=== PATIENT | male | born 1980 | race American Indian/Alaskan Native ===

== ENCOUNTER 2018-03-07 13:30 | Emergency (ER) | payer OTHER | END 2018-03-07 20:30 | disposition left against medical advice (07) | LOC: ED 13:30 ==

== ENCOUNTER 2018-03-08 11:42 | Emergency (ER) | payer OTHER ==
--- NOTE | 2018-03-08 12:57 | Emergency Department Report ---
Chief Complaint: Laceration/Recheck/Suture Stated Complaint: STITCHES REMOVAL Time Seen by Provider: 03/08/18 12:15 - HPI History of Present Illness: This is a 38-year-old male presents to have his sutures reevaluated patient was seen here 6 days ago he had sutures placed on his left and a left ear. Patient states that he never received a prescription for antibiotics and is noticed that his suture site on his hand is becoming red and swelling with some pus around it . Patient states he received a tetanus booster while he was there but did not receive a prescription for antibiotics. He states he has been cleaning wound with peroxide and salt water daily. And applying topical Neosporin - ROS Review of Systems: Denies all other systems - Exam Vital Signs: Vital Signs 03/08/18 11:52 Temperature 98.1 F Pulse Rate 68 Respiratory 16 Rate Blood Pressure 120/76 O2 Sat by Pulse 99 Oximetry Physical Exam: GEN: Patient is alert and oriented 3, he is in no respiratory acute distress. Sitting comfortably in ED bed. EXTREMITY: 5-6 stitches noted on the left posterior hand. Sutures side has some swelling and erythema around it., Nontender to palpation. Small pus filled pustules around the suture site. 3 stitches to the left ear. Looks well healing. MSE screening note: Focused history and physical exam performed. Due to findings the following was ordered: ED Medical Decision Making - Medical Decision Making 38-year-old male presents for suture reevaluation Upon my evaluation I discussed the patient states she is ready to come out. I discussed the patient we'll give him some antibiotics to prevent further infection. I discussed heat therapy 3 times a day to help with inflammation. I discussed the patient need to return in 5 days for suture removal after wound is probably healed. Vital signs are normal patient is no acute distress. ED Disposition for MSE Clinical Impression: Hand laceration, Ear lobe laceration Disposition: - TO HOME OR SELFCARE Is pt being admited?: No Does the pt Need Aspirin: No Condition: Stable Instructions: Suture Care (ED) Additional Instructions: Make sure to follow up with the primary care physician as discussed. Take all your medications as you've been prescribed. If you have any worsening symptoms or develop new symptoms please return to ED immediately. Prescriptions: Clindamycin [Clindamycin CAP] 300 mg PO Q8H #21 cap Ibuprofen [Motrin 600 MG tab] 600 mg PO Q8H PRN #30 tablet PRN Reason: Pain Referrals: PRIMARY CARE, [Primary Care Provider] - 3-5 Days [facility] [Outside] - 3-5 Days Forms: Work/School Release Form(ED) Time of Disposition: 12:59
== END 2018-03-08 13:12 | disposition home or self-care (01) ==
LOC: ED 11:42
CPT/HCPCS: 99282

== ENCOUNTER 2018-04-03 16:57 | Emergency (ER) | payer OTHER ==
[2018-04-03 18:07] LABS: Hematocrit 48.1 % (35.5-45.6); Lymphocytes % (Auto) 37.9 % (13.4-35.0); Mean Corpuscular HGB Conc 33 % (32-34); Mean Corpuscular Volume 97 fl (84-94); Monocytes % (Auto) 15.3 % (0.0-7.3); Platelet Count 239 K/mm3 (140-440); Red Blood Count 4.95 M/mm3 (3.65-5.03)
[2018-04-03 18:08] LABS: Basophils # (Auto) 0.1 K/mm3 (0.0-0.1); Basophils % (Auto) 1.8 % (0.0-1.8); Eosinophils # (Auto) 0.1 K/mm3 (0.0-0.4); Eosinophils % (Auto) 3.8 % (0.0-4.3); Lymphocytes # (Auto) 1.4 K/mm3 (1.2-5.4); Monocytes # (Auto) 0.6 K/mm3 (0.0-0.8)
[2018-04-03 18:14] LABS: Alanine Aminotransferase 13 units/L (7-56); Albumin 4.3 g/dL (3.9-5); BUN/Creatinine Ratio 13; Blood Urea Nitrogen 16 mg/dL (9-20); Calcium 9.6 mg/dL (8.4-10.2); Hemolysis Index 26
[2018-04-03] MEDS ORDERED: ZOFRAN IV STA (19:54)
[2018-04-03] MEDS ORDERED: TORADOL IV STA (19:54)
[2018-04-03] MEDS ORDERED: NACL 0.9% 1000 ML 1,000 ML IV ONE (19:54)
--- NOTE | 2018-04-03 20:01 | Emergency Department Report ---
ED Abdominal Pain HPI - General Chief Complaint: Abdominal Pain Stated Complaint: STOMACH PAIN/VOMIT Time Seen by Provider: 04/03/18 19:15 Source: patient Mode of arrival: Ambulatory Limitations: No Limitations - History of Present Illness Initial Comments: 38-year-old -[place] male with no significant past medical history reports emerge department complaining of a 2 day history of non-progressing upper abdominal pain associated with vomiting 7 and also constipation. Pain is changing in character and intensity throughout the course of the day with no known palliative or provocative factors. Reports no fevers, chills, sweats. Reports no no diarrhea, no hemoptysis, hematemesis, or hematochezia. Reports no trauma. There is no foreign travel or fever. Reports no new food was for special diets. Systems urine has been sent been a little bit dark but he still is able to urinate daily. MD Complaint: abdominal pain Location: epigastric Radiation: RUQ, RLQ Severity scale (0 -10): 10 Consistency: intermittent Improves With: nothing - Related Data Previous Rx's Medication Instructions Recorded Last Taken Type Clindamycin [Clindamycin CAP] 300 mg PO Q8H #21 cap 03/08/18 Unknown Rx Ibuprofen [Motrin 600 MG tab] 600 mg PO Q8H PRN #30 tablet 03/08/18 Unknown Rx Dicyclomine [Bentyl] 20 mg PO QID #10 tablet 04/03/18 Unknown Rx Ketorolac [Toradol] 10 mg PO Q6H PRN #10 tablet 04/03/18 Unknown Rx Ondansetron [Zofran Odt] 4 mg PO Q8HR #20 tab.rapdis 04/03/18 Unknown Rx Allergies Allergy/AdvReac Type Severity Reaction Status Date / Time morphine Allergy Hives Verified 04/03/18 16:58 ED Review of Systems ROS: Stated complaint: STOMACH PAIN/VOMIT Other details as noted in HPI Constitutional: denies: chills, fever Eyes: denies: eye pain, eye discharge, vision change ENT: denies: ear pain, throat pain Respiratory: denies: cough, shortness of breath, wheezing Cardiovascular: denies: chest pain, palpitations Endocrine: no symptoms reported Gastrointestinal: denies: abdominal pain, nausea, diarrhea Genitourinary: denies: urgency, dysuria Musculoskeletal: denies: back pain, joint swelling, arthralgia Skin: denies: rash, lesions Neurological: denies: headache, weakness, paresthesias Psychiatric: denies: anxiety, depression Hematological/Lymphatic: denies: easy bleeding, easy bruising ED Past Medical Hx - Past Medical History Additional medical history: pancreatitis - Surgical History Additional Surgical History: right knee, right thumb - Social History Smoking Status: Light Tobacco Smoker Substance Use Type: Marijuana - Medications Home Medications: Home Medications Medication Instructions Recorded Confirmed Last Taken Type Clindamycin [Clindamycin CAP] 300 mg PO Q8H #21 cap 03/08/18 Unknown Rx Ibuprofen [Motrin 600 MG tab] 600 mg PO Q8H PRN #30 tablet 03/08/18 Unknown Rx Dicyclomine [Bentyl] 20 mg PO QID #10 tablet 04/03/18 Unknown Rx Ketorolac [Toradol] 10 mg PO Q6H PRN #10 tablet 04/03/18 Unknown Rx Ondansetron [Zofran Odt] 4 mg PO Q8HR #20 tab.rapdis 04/03/18 Unknown Rx ED Physical Exam - General Limitations: No Limitations General appearance: alert, in no apparent distress - Head Head exam: Present: atraumatic, normocephalic, normal inspection - Eye Eye exam: Present: normal appearance, PERRL, EOMI. Absent: scleral icterus, periorbital swelling Pupils: Present: normal accommodation - ENT ENT exam: Present: normal exam, normal orophraynx, mucous membranes moist, TM's normal bilaterally - Neck Neck exam: Present: normal inspection, full ROM. Absent: lymphadenopathy, thyromegaly - Respiratory Respiratory exam: Present: normal lung sounds bilaterally. Absent: respiratory distress - Cardiovascular Cardiovascular Exam: Present: regular rate, normal rhythm. Absent: systolic murmur, diastolic murmur, rubs, gallop - GI/Abdominal GI/Abdominal exam: Present: soft, normal bowel sounds - Rectal Rectal exam: Present: deferred - Extremities Exam Extremities exam: Present: normal inspection - Back Exam Back exam: Present: normal inspection - Neurological Exam Neurological exam: Present: alert, oriented X3 - Psychiatric Psychiatric exam: Present: normal affect, normal mood - Skin Skin exam: Present: warm, dry, intact, normal color. Absent: rash ED Course Vital Signs 04/03/18 04/03/18 04/03/18 17:07 20:58 23:03 Temperature 97.5 F L 97.9 F 97.9 F Pulse Rate 72 57 L 57 L Respiratory 16 16 16 Rate Blood Pressure 110/65 Blood Pressure 91/59 108/70 [Left] O2 Sat by Pulse 99 99 99 Oximetry ED Medical Decision Making - Lab Data Result diagrams: 04/03/18 17:42 04/03/18 17:42 - Medical Decision Making 38-year-old -[place] male to emergency Department with abdominal pain. Epigastric region of unknown etiology. He denies any pre-existing abdominal issues. He was provided with fluids, Zofran and 6, and Toradol with significant improvement his pain had to be redosed with oral pain medication and stated about an hour afterwards, his pain had has subsided. Laboratory data was was relatively benign and he did have some calcifications in to the tail of his pancreas on examination. Discussed with him that the likelihood of this what may have been secondary to to alcoholism which is a common cause advised follow- up with [facility] and primary care for further evaluation and treatment recommendations. Critical care attestation.: If time is entered above; I have spent that time in minutes in the direct care of this critically ill patient, excluding procedure time. ED Disposition Clinical Impression: Abdominal pain, Pancreatic calcification Disposition: [id number] TO HOME OR SELFCARE Is pt being admited?: No Does the pt Need Aspirin: No Condition: Stable Instructions: Acute Abdominal Pain (ED), Abdominal Pain (ED) Prescriptions: Dicyclomine [Bentyl] 20 mg PO QID #10 tablet Ketorolac [Toradol] 10 mg PO Q6H PRN #10 tablet PRN Reason: Pain Ondansetron [Zofran Odt] 4 mg PO Q8HR #20 tab.rapdis Referrals: WALKER MORALES DO [Primary Care Provider] - 3-5 Days [facility] [Provider Group] - 3-5 Days
[2018-04-03] MEDS ORDERED: PERCOCET 5/325 ONE (21:00)
[2018-04-03] MEDS ORDERED: PERCOCET 5/325 PO ONE (21:00)
--- NOTE | 2018-04-03 23:01 | Cat Scan Report ---
FINAL REPORT PROCEDURE: CT abdomen and pelvis with contrast. TECHNIQUE: Computerized axial tomography of the abdomen and pelvis was performed after the IV inject ion of iodinated nonionic contrast. HISTORY: Right lower quadrant and epigastric abdominal pain. COMPARISON: No prior studies are available for comparison. FINDINGS: The lung bases are clear. There are no pleural effusions. The heart size is normal. The liver, pancre as and spleen appear normal. There are some coarse calcifications in the tail of the pancreas without an obvious mass. This could be secondary to a previous episode of pancreatitis. Clinical correlation is suggested. The gallbladder is present. There is no biliary dilatation. The adrenal glands are not enlarged. Both kidneys appear normal in size and configuration. The abdominal aorta has a normal jana iber. There is no retroperitoneal adenopathy. The unopacified gastrointestinal tract is unremarkable. A normal appendix is visible. The bladder, seminal vesicles and prostate appear normal. The regional skeleton appears intact. IMPRESSION: Calcifications in the tail of the pancreas as discussed above. Otherwise normal studies of the abdome n and pelvis.
[2018-04-03 23:04] VITALS: BP 108/70
== END 2018-04-04 00:05 | disposition home or self-care (01) ==
LOC: ED 16:57
DX: K86.89 Other specified diseases of pancreas (principal); F17.200 Nicotine dependence, unspecified, uncomplicated; F12.10 Cannabis abuse, uncomplicated
CPT/HCPCS: 36415; 74177; 80053; 83690; 85025; 96361; 96374; 96375; 99284; J1885; J2405; J7030; Q9967

== ENCOUNTER 2020-01-05 20:29 | Emergency (ER) | payer SELFPAY ==
[2020-01-06 00:35] VITALS: BP 105/66
== END 2020-01-06 02:00 | disposition left against medical advice (07) ==
LOC: ED 20:29
DX: R10.9 Unspecified abdominal pain (principal); Z53.21 Procedure and treatment not carried out due to patient leaving prior to being seen by health care provider

== ENCOUNTER 2020-03-08 18:35 | Emergency (ER) | payer OTHER | END 2020-03-08 19:00 | disposition left against medical advice (07) | LOC: ED 18:35 | DX: R06.02 Shortness of breath (principal); Z53.21 Procedure and treatment not carried out due to patient leaving prior to being seen by health care provider ==